=== PATIENT | female | born 1985 | race Native Hawaiian/Other Pacific Islander ===

== ENCOUNTER 2017-04-17 01:23 | Emergency (ER) | payer OTHER ==
[2017-04-17 01:39] VITALS: BP 106/71; PULSE 73; RESP 20; TEMP 98; O2SAT 97
--- NOTE | 2017-04-17 04:34 | C.PDOC ---
History Of Present Illness 32 year old female presents to the ED for evaluation of a dog scratch to her left wrist sustained earlier today. Patient states she was holding a friend's dog when it tried to get away and accidentally cut off sawyer log her. She is up to date on tetanus and denies any itching, swelling, or drainage. Chief Complaint (Nursing): Wound Check History Per: Patient History/Exam Limitations: no limitations Onset/Duration Of Symptoms: Hrs Current Symptoms Are (Timing): Still Present Location Of Injury: Left: Wrist (scratch ) Quality Of Symptoms: denies: Itching, Swollen, Draining Recent travel outside of the [place]: No Past Medical History Reviewed: Historical Data, Nursing Documentation, Vital Signs Vital Signs: Last Vital Signs Temp 98 F 04/17/17 01:32 Pulse 73 04/17/17 01:32 Resp 20 04/17/17 01:32 BP 106/71 04/17/17 01:32 Pulse Ox 97 04/17/17 04:37 - Medical History PMH: Depression Family History: States: Unknown Family Hx - Social History Hx Alcohol Use: Yes Hx Substance Use: No - Immunization History Hx Tetanus Toxoid Vaccination: Yes (2012) Hx Influenza Vaccination: No Hx Pneumococcal Vaccination: No Review Of Systems Constitutional: Negative for: Fever, Chills Skin: Positive for: Other (laceration to left wrist area ). Negative for: Rash Neurological: Negative for: Weakness, Numbness Physical Exam - Physical Exam Appears: Well, Non-toxic, No Acute Distress Skin: Warm, Dry, No Ecchymosis, Other (2 cm linear superfical laceration to left wrist ) Extremity: Normal ROM, No Tenderness, Capillary Refill (good capillary refill, less than two seconds ), No Deformity, No Swelling Pulses: Left Radial: Normal, Right Radial: Normal Neurological/Psych: Oriented x3 ED Course And Treatment O2 Sat by Pulse Oximetry: 97 (RA) Pulse Ox Interpretation: Normal Progress Note: There is no evidence of cellulitis and the laceration has already stopped bleeding. The dog was a friends' dog and is up to date with immunizations. No need for antibiotics at this time as this was a superfical scratch and not a bite. Disposition - Disposition Disposition: HOME/ ROUTINE Disposition Time: 01:50 Condition: GOOD Instructions: Abrasion (ED) Forms: [employer] ([facility]) - Clinical Impression Clinical Impression: Dog scratch - PA / DIVISION SUPERVISOR / Resident Statement MD/DO has reviewed & agrees with the documentation as recorded. - Scribe Statement The provider has reviewed the documentation as recorded by the Raulibmadelyn Díaz All medical record entries made by the Linn were at my direction and personally dictated by me. I have reviewed the chart and agree that the record accurately reflects my personal performance of the history, physical exam, medical decision making, and the department course for this patient. I have also personally directed, reviewed, and agree with the discharge instructions and disposition.
== END 2017-04-17 02:20 | disposition home or self-care (01) ==
LOC: C.ER 01:23
DX: S60.812A Abrasion of left wrist, initial encounter (principal); W54.1XXA Struck by dog, initial encounter; Y93.89 Activity, other specified; Y92.89 Other specified places as the place of occurrence of the external cause